=== PATIENT | male | born 1940 | race Caucasian/White ===

== ENCOUNTER 2017-08-31 08:55 | Inpatient (IN) | payer MEDICARE ==
[~2017-08-31] VITALS: Ht 180.3 cm; Wt 79.0 kg
[~2017-08-31 08:55] MED LIST: ACIDOPHILUS1 EAC2 PO; AMOCLA500 PO; CARV6.25 PO; Calcitriol0.5 MCG PO; Cinnamon500 MG PO; ERGO400 PO; FISH1000 PO; HYDR1TAB94 PO; LOSA25 PO; LOSA50 PO; MERIBIN5 MG PO; METO100ER PO; NIFE90ER PO; RENAL-VITE TAB0.8 MG PO; SEVEC800 PO; TAMS.4ER PO; TURMERIC500 M2 PO; UBID10 PO; ZINC50 M2 PO; Zithromax250 MG PO
[2017-08-31 09:51] LABS: BASOPHILS ABSOLUTE AUTO 0.11 K/mm3 (0.00-0.23); BASOPHILS PERCENT AUTO 1 % (0-2); EOSINOPHILS ABSOLUTE AUTO 0.14 K/mm3 (0.00-0.68); EOSINOPHILS PERCENT AUTO 1 % (0-6); Hematocrit 37.2 % (37.0-53.0); Hemoglobin 12.5 g/dL (13.5-17.5); IMMATURE GRAN ABSOLUTE AUTO 0.02 K/mm3 (0.00-0.10); IMMATURE GRAN PERCENT AUTO 0 % (0-1); LYMPHOCYTES ABSOLUTE AUTO 1.36 K/mm3 (0.84-5.20); LYMPHOCYTES PERCENT AUTO 14 % (21-46); MONOCYTES ABSOLUTE AUTO 1.47 K/mm3 (0.16-1.47); MONOCYTES PERCENT AUTO 15 % (4-13); Mean Corpuscular HGB 33.1 pg (26.0-34.0); Mean Corpuscular HGB Conc 33.6 g/dL (31.5-36.5); Mean Corpuscular Volume 98 fL (80-100); Mean Platelet Volume 10.8 fL (9.1-12.4); NEUTROPHILS ABSOLUTE AUTO 6.94 K/mm3 (1.96-9.15); NEUTROPHILS PERCENT AUTO 69 % (41-73); Platelet Count 248 K/mm3 (150-400); RDW Coefficient Variation 14.3 % (11.7-14.2); RDW Standard Deviation 51.4 fL (35.1-46.3); Red Blood Cell Count 3.78 M/mm3 (4.30-5.90); White Blood Cell Count 10.04 K/mm3 (4.00-11.30)
[2017-08-31 10:12] LABS: Albumin, Blood 3.6 g/dL (3.4-5.0); Albumin/Globulin Ratio 0.9 (0.8-1.8); Calcium, Blood 9.4 mg/dL (8.5-10.1); Creatinine, Blood 7.51 mg/dL (0.60-1.20); Globulin, Blood 4.1 g/dL (2.2-4.0); Magnesium, Blood 2.2 mg/dL (1.6-2.4); Total Protein, Blood 7.7 g/dL (6.4-8.2)
[2017-08-31 10:18] LABS: Troponin I 0.813 ng/mL (0.000-0.040)
[2017-08-31 17:49] LABS: International Normalized Ratio 1.11; Prothrombin Time Results 11.6 Sec (9.7-11.5)
[2017-09-01 01:38] LABS: BASOPHILS ABSOLUTE AUTO 0.08 K/mm3 (0.00-0.23); BASOPHILS PERCENT AUTO 1 % (0-2); EOSINOPHILS ABSOLUTE AUTO 0.27 K/mm3 (0.00-0.68); EOSINOPHILS PERCENT AUTO 4 % (0-6); Hematocrit 32.4 % (37.0-53.0); Hemoglobin 10.8 g/dL (13.5-17.5); IMMATURE GRAN ABSOLUTE AUTO 0.01 K/mm3 (0.00-0.10); IMMATURE GRAN PERCENT AUTO 0 % (0-1); LYMPHOCYTES ABSOLUTE AUTO 1.84 K/mm3 (0.84-5.20); LYMPHOCYTES PERCENT AUTO 24 % (21-46); MONOCYTES ABSOLUTE AUTO 1.09 K/mm3 (0.16-1.47); MONOCYTES PERCENT AUTO 14 % (4-13); Mean Corpuscular HGB 32.5 pg (26.0-34.0); Mean Corpuscular HGB Conc 33.3 g/dL (31.5-36.5); Mean Corpuscular Volume 98 fL (80-100); NEUTROPHILS ABSOLUTE AUTO 4.45 K/mm3 (1.96-9.15); NEUTROPHILS PERCENT AUTO 58 % (41-73); Platelet Count 207 K/mm3 (150-400); RDW Coefficient Variation 14.2 % (11.7-14.2); RDW Standard Deviation 50.5 fL (35.1-46.3); Red Blood Cell Count 3.32 M/mm3 (4.30-5.90); White Blood Cell Count 7.74 K/mm3 (4.00-11.30)
[2017-09-01 01:55] LABS: Albumin/Globulin Ratio 0.8 (0.8-1.8); Bilirubin, Total 0.9 mg/dL (0.1-1.0); Bun/Creatinine Ratio 5.5 (12.0-20.0); Calcium, Blood 8.7 mg/dL (8.5-10.1); Creatinine, Blood 5.46 mg/dL (0.60-1.20); Globulin, Blood 3.6 g/dL (2.2-4.0); Magnesium, Blood 2.1 mg/dL (1.6-2.4); Phosphorus, Blood 4.2 mg/dL (2.5-4.9); Potassium, Blood 3.8 mmol/L (3.5-5.5); Total Protein, Blood 6.6 g/dL (6.4-8.2)
[2017-09-02] MEDS ORDERED: Aspir-Trin325 MG PO (11:08)
[2017-09-02] MEDS ORDERED: FISH OIL 1,0001 EAC1 PO (11:09)
[2017-09-02] MEDS ORDERED: ATOR40TA PO (11:09)
[2017-09-02] MEDS ORDERED: Plavix75 MG PO (11:09)
[2017-09-02] MEDS ORDERED: LOSA25 PO (11:10)
[2017-09-02] MEDS ORDERED: CARV3.125 PO (11:12)
== END 2017-09-02 13:10 | disposition home or self-care (01) | DRG 246 ==
LOC: ER 08:55 → PCU 11:08 → ICUW 11:08 → PCU 12:11 → ICUW 09-01 09:06
PROVIDERS: Emergency Medicine; Hospitalist; Internal Medicine Cardiovascular Disease
PROC: 5A1D70Z Performance of Urinary Filtration, Intermittent, Less than 6 Hours Per Day (ICD-10-PCS; 2017-08-31)
PROC: 4A023N7 Measurement of Cardiac Sampling and Pressure, Left Heart, Percutaneous Approach (ICD-10-PCS; principal; 2017-09-01)
PROC: 027034Z Dilation of Coronary Artery, One Artery with Drug-eluting Intraluminal Device, Percutaneous Approach (ICD-10-PCS; 2017-09-01)
PROC: B210YZZ Fluoroscopy of Single Coronary Artery using Other Contrast (ICD-10-PCS; 2017-09-01)
DX: I21.9 Acute myocardial infarction, unspecified (principal); N18.6 End stage renal disease; I13.2 Hypertensive heart and chronic kidney disease with heart failure and with stage 5 chronic kidney disease, or end stage renal disease; I27.20 Pulmonary hypertension, unspecified; I49.5 Sick sinus syndrome; I48.0 Paroxysmal atrial fibrillation; I50.22 Chronic systolic (congestive) heart failure; R33.8 Other retention of urine; I48.91 Unspecified atrial fibrillation; E78.5 Hyperlipidemia, unspecified; Z79.01 Long term (current) use of anticoagulants; Z99.2 Dependence on renal dialysis; Z95.0 Presence of cardiac pacemaker
CPT/HCPCS: 36415; 71020; 80053; 83735; 84100; 84484; 85025; 85347; 85610; 85730; 86850; 86900; 86901; 92978; 93005; 93010; 93458; 96365; 96376; 99152; 99153; 99285; C1725; C1753; C1769; C1874; C1894; C9600; J1644; J2250; J3010; J7030; J7060; Q9967

== ENCOUNTER 2018-03-01 08:03 | Emergency (ER) | payer MEDICARE ==
[~2018-03-01] VITALS: Ht 180.3 cm; Wt 81.7 kg
[~2018-03-01 08:03] MED LIST changes: +ATOR40TA PO; +Aspir-Trin325 MG PO; +CARV3.125 PO; +FISH OIL 1,0001 EAC1 PO; +Plavix75 MG PO
[2018-03-01] MEDS ORDERED: WARF6 PO (08:20)
[2018-03-01] MEDS ORDERED: METO50 PO (08:21)
[2018-03-01 09:04] LABS: BASOPHILS ABSOLUTE AUTO 0.03 K/mm3 (0.00-0.23); BASOPHILS PERCENT AUTO 0 % (0-2); EOSINOPHILS ABSOLUTE AUTO 0.01 K/mm3 (0.00-0.68); EOSINOPHILS PERCENT AUTO 0 % (0-6); Hematocrit 36.1 % (37.0-53.0); Hemoglobin 11.9 g/dL (13.5-17.5); IMMATURE GRAN ABSOLUTE AUTO 0.04 K/mm3 (0.00-0.10); IMMATURE GRAN PERCENT AUTO 0 % (0-1); LYMPHOCYTES PERCENT AUTO 3 % (21-46); MONOCYTES ABSOLUTE AUTO 0.92 K/mm3 (0.16-1.47); MONOCYTES PERCENT AUTO 8 % (4-13); Mean Corpuscular HGB 32.2 pg (26.0-34.0); Mean Corpuscular Volume 98 fL (80-100); Mean Platelet Volume 10.7 fL (9.1-12.4); NEUTROPHILS ABSOLUTE AUTO 9.71 K/mm3 (1.96-9.15); NEUTROPHILS PERCENT AUTO 88 % (41-73); Platelet Count 220 K/mm3 (150-400); RDW Standard Deviation 50.4 fL (35.1-46.3); Red Blood Cell Count 3.69 M/mm3 (4.30-5.90); White Blood Cell Count 11.01 K/mm3 (4.00-11.30)
[2018-03-01 09:10] LABS: Calcium, Ionized (POC) 1.05 mmol/L (1.10-1.46); Chloride (POC) 96 mmol/L (98-108); Creatinine (POC) 8.3 mg/dL (0.8-1.3); Glucose (ISTAT POC) 130 mg/dL (70-99); Hemoglobin (POC) 11.9 g/dL (13.5-17.5); Sodium (POC) 137 mmol/L (135-148); Total CO2 (POC) 27 mmol/L (21-32)
[2018-03-01 09:16] LABS: International Normalized Ratio 3.04; Prothrombin Time Results 29.4 Sec (9.7-11.5)
[2018-03-01 09:30] LABS: Albumin, Blood 3.7 g/dL (3.4-5.0); Albumin/Globulin Ratio 0.9 (0.8-1.8); Bilirubin, Total 1.4 mg/dL (0.1-1.0); Bun/Creatinine Ratio 5.9 (12.0-20.0); Creatinine, Blood 7.95 mg/dL (0.60-1.20); Globulin, Blood 4.2 g/dL (2.2-4.0); Potassium, Blood 4.1 mmol/L (3.5-5.5); Total Protein, Blood 7.9 g/dL (6.4-8.2); Troponin I 0.02 ng/mL (0.000-0.040)
== END 2018-03-01 10:02 | disposition home or self-care (01) ==
LOC: ER 08:03
PROVIDERS: Emergency Medicine
DX: E87.70 Fluid overload, unspecified (principal); Z88.8 Allergy status to other drugs, medicaments and biological substances; Z79.899 Other long term (current) drug therapy; Z79.82 Long term (current) use of aspirin; I10 Essential (primary) hypertension; Z87.891 Personal history of nicotine dependence
CPT/HCPCS: 71046; 80047; 80053; 83880; 84484; 85014; 85025; 85610; 93005; 93010; 99284

== ENCOUNTER 2018-09-25 06:50 | Day surgery (SDC) | payer MEDICARE ==
[~2018-09-25] VITALS: Ht 180.3 cm; Wt 75.0 kg
[~2018-09-25 06:50] MED LIST changes: +METO50 PO; +WARF6 PO
--- NOTE | 2018-09-25 08:19 | NUR ---
DR LING AT BEDSIDE FOR PROCEDURE. PT TOLERATING PROCEDURE WITH NO DISCOMFORT POST LIDOCAINE TO PERMA CATH AREA. REMAINS AT BEDSIDE FOR PROCEDURE.
--- NOTE | 2018-09-25 08:56 | NUR ---
WHEN PT WAS GETTING DRESSED FOR DISCHARGE, LARGE HEMATOMA DEVELOPED ON RIGHT UPPER CHEST UNDER INCISION SITES. PT ASSISTED BACK INTO BED. MANUAL PRESSURE TO SITE.
--- NOTE | 2018-09-25 09:25 | NUR ---
WEIGHT HAS BEEN APPLIED TO RIGHT UPPER CHEST, DUE TO CONTINUED SWELLING AND IMMEDIATE RETURN OF HEMATOMA WITHOUT WEIGHT TO SITE. SITE CURRENTLY SOFT, NO SWELLING OR BLEEDING. BRUISING NOTED AROUND INCISION SITES.
--- NOTE | 2018-09-25 10:10 | NUR ---
UPON TAKING WEIGHT OFF OF RIGHT UPPER CHEST, HEMATOMA RETURNS TO INCISION SITE. IMMEDIATE PRESSURE HELD TO SITE. DR LING NOTIFIED OF ONGOING HEMATOMA.
--- NOTE | 2018-09-25 11:55 | NUR ---
PT OUT TO CAR VIA WHEELCHAIR. GOING TO DIALYSIS IMMEDICATELY AFTER D/C. PRESSURE DRESSING IN PLACE ON RIGHT UPPER CHEST. NO SIGNS OF BLEEDING/HEMATOMA AT TIME OF DISCHARGE. DR LING ASSESSED SITE WELL PRIOR TO PT D/C.
== END 2018-09-25 11:50 | disposition home or self-care (01) ==
LOC: MHTC NI 06:50 → MHTC 06:50 → MHTC NI 11:50 → MHTC 11:50
DX: N18.6 End stage renal disease (principal); Z99.2 Dependence on renal dialysis
CPT/HCPCS: 36590

== ENCOUNTER 2018-10-04 06:44 | Day surgery (SDC) | payer MEDICARE ==
[~2018-10-04] VITALS: Ht 180.3 cm; Wt 75.0 kg
--- NOTE | 2018-10-04 09:48 | NUR ---
DR. LING AT BEDSIDE SPEAKING WITH PT AND HIS ABOUT RESULTS OF PROCEDURE. QUESTIONS ANSWERED. PHONE CALL PLACED TO [facility] BY THIS NURSE TO ENSURE THAT PT WILL GET DIALYSIS COMPLETE TODAY PER DR. LING.
--- NOTE | 2018-10-04 10:34 | NUR ---
PT VERBALIZED UNDERSTANDING OF D/C INSTRUCTIONS. PAPERWORK PLACED INTO [facility] FOLDER AND PROVIDED TO PT. TWO SUTURES REMOVED FROM RIGHT ARM FISTULA PRIOR TO D/C. MINIMAL OOZING NOTED. NON ADHESIVE PAD, 4X4'S, AND COBAN USED TO COVER FISTULA AT DISPO. PT BEING DISCHARGED BEFORE 2 HOUR ORDERS DUE TO NEEDING TO HAVE DIAYLISIS DONE TODAY, DR. LING AWARE AND IS OKAY WITH PT LEAVING NOW. IV REMOVED FROM LEFT WRIST, CATH INTACT, PRESSURE DRESSING APPLIED. PT GETS DRESSED WITH NO NEEDED ASSISTANCE, HIS IS HERE TO DRIVE HIM. TAKEN OUT TO PRIVATE VEHICLE VIA W/C WITH NADN AT TIME OF DISPO. VSS.
== END 2018-10-04 10:40 | disposition home or self-care (01) ==
LOC: MHTC 06:44 → ORSCMMR 06:45 → MHTC 07:00
DX: N18.6 End stage renal disease (principal); Z99.2 Dependence on renal dialysis; Z88.8 Allergy status to other drugs, medicaments and biological substances
CPT/HCPCS: 36902; 36905; 36907; 76937; 99152; 99153; C1725; C1757; C1769; C1894; C2623; J1644; J2250; J3010; J7030; J7040; Q9967

== ENCOUNTER 2018-11-01 14:43 | Emergency (ER) | payer MEDICARE ==
[~2018-11-01] VITALS: Ht 180.3 cm; Wt 77.1 kg
== END 2018-11-01 16:05 | disposition home or self-care (01) ==
LOC: ER 14:43
DX: S46.112A Strain of muscle, fascia and tendon of long head of biceps, left arm, initial encounter (principal); I10 Essential (primary) hypertension; Z88.8 Allergy status to other drugs, medicaments and biological substances; Z79.01 Long term (current) use of anticoagulants; Z79.899 Other long term (current) drug therapy; Z79.02 Long term (current) use of antithrombotics/antiplatelets; Z87.891 Personal history of nicotine dependence; Z99.2 Dependence on renal dialysis
CPT/HCPCS: 93971; 99283

== ENCOUNTER → 2018-11-01 | Outpatient (CLI) | payer MEDICARE ==
[2018-11-01 13:28] LABS: BASOPHILS ABSOLUTE AUTO 0.05 K/mm3 (0.00-0.23); BASOPHILS PERCENT AUTO 1 % (0-2); EOSINOPHILS ABSOLUTE AUTO 0.04 K/mm3 (0.00-0.68); EOSINOPHILS PERCENT AUTO 1 % (0-6); IMMATURE GRAN ABSOLUTE AUTO 0.04 K/mm3 (0.00-0.10); IMMATURE GRAN PERCENT AUTO 1 % (0-1); LYMPHOCYTES ABSOLUTE AUTO 0.83 K/mm3 (0.84-5.20); LYMPHOCYTES PERCENT AUTO 12 % (21-46); MONOCYTES ABSOLUTE AUTO 0.79 K/mm3 (0.16-1.47); MONOCYTES PERCENT AUTO 12 % (4-13); Mean Corpuscular HGB 30.9 pg (26.0-34.0); Mean Corpuscular HGB Conc 33.3 g/dL (31.5-36.5); Mean Corpuscular Volume 93 fL (80-100); Mean Platelet Volume 10.1 fL (9.1-12.4); NEUTROPHILS ABSOLUTE AUTO 5.12 K/mm3 (1.96-9.15); NEUTROPHILS PERCENT AUTO 75 % (41-73); Platelet Count 190 K/mm3 (150-400); RDW Coefficient Variation 18.7 % (11.7-14.2); RDW Standard Deviation 62.8 fL (35.1-46.3); Red Blood Cell Count 3.88 M/mm3 (4.30-5.90); White Blood Cell Count 6.87 K/mm3 (4.00-11.30)
[2018-11-01 13:31] LABS: Albumin, Blood 2.9 g/dL (3.4-5.0); Albumin/Globulin Ratio 0.8 (0.8-1.8); Bilirubin, Direct 0.7 mg/dL (0.0-0.3); Bilirubin, Indirect 1.3 mg/dL (0.1-0.7); Globulin, Blood 3.7 g/dL (2.2-4.0); Total Protein, Blood 6.6 g/dL (6.4-8.2)
== END ==
LOC: LAB SHORT 13:07 → LAB 13:07
PROVIDERS: Internal Medicine
DX: L03.114 Cellulitis of left upper limb (principal); M79.81 Nontraumatic hematoma of soft tissue; D68.318 Other hemorrhagic disorder due to intrinsic circulating anticoagulants, antibodies, or inhibitors
CPT/HCPCS: 80076; 85025; 85730

== ENCOUNTER 2018-12-17 12:56 | Observation (INO) | payer MEDICARE ==
[~2018-12-17] VITALS: Ht 180.3 cm; Wt 77.1 kg
[~2018-12-17 12:56] MED LIST changes: +METO25ER PO; -METO50 PO; +WARF5 PO; -WARF6 PO
[2018-12-17] MEDS ORDERED: Meribin5 MG PO (13:15)
[2018-12-17] MEDS ORDERED: TURMERIC500 M2 PO (13:15)
[2018-12-17 13:53] LABS: BASOPHILS ABSOLUTE AUTO 0.06 K/mm3 (0.00-0.23); BASOPHILS PERCENT AUTO 1 % (0-2); EOSINOPHILS ABSOLUTE AUTO 0.15 K/mm3 (0.00-0.68); EOSINOPHILS PERCENT AUTO 2 % (0-6); Hematocrit 37.3 % (37.0-53.0); Hemoglobin 11.8 g/dL (13.5-17.5); IMMATURE GRAN ABSOLUTE AUTO 0.04 K/mm3 (0.00-0.10); IMMATURE GRAN PERCENT AUTO 1 % (0-1); LYMPHOCYTES ABSOLUTE AUTO 0.72 K/mm3 (0.84-5.20); LYMPHOCYTES PERCENT AUTO 9 % (21-46); MONOCYTES ABSOLUTE AUTO 1.06 K/mm3 (0.16-1.47); MONOCYTES PERCENT AUTO 13 % (4-13); Mean Corpuscular HGB 32.4 pg (26.0-34.0); Mean Corpuscular HGB Conc 31.6 g/dL (31.5-36.5); Mean Corpuscular Volume 103 fL (80-100); Mean Platelet Volume 11.1 fL (9.1-12.4); NEUTROPHILS ABSOLUTE AUTO 6.23 K/mm3 (1.96-9.15); NEUTROPHILS PERCENT AUTO 76 % (41-73); Platelet Count 205 K/mm3 (150-400); RDW Coefficient Variation 16.7 % (11.7-14.2); RDW Standard Deviation 63.6 fL (35.1-46.3); Red Blood Cell Count 3.64 M/mm3 (4.30-5.90); White Blood Cell Count 8.26 K/mm3 (4.00-11.30)
[2018-12-17 14:16] LABS: Albumin, Blood 2.9 g/dL (3.4-5.0); Albumin/Globulin Ratio 0.7 (0.8-1.8); Bilirubin, Total 1.1 mg/dL (0.1-1.0); Bun/Creatinine Ratio 9.9 (12.0-20.0); Calcium, Blood 9.4 mg/dL (8.5-10.1); Creatinine, Blood 5.37 mg/dL (0.60-1.20); Globulin, Blood 4.2 g/dL (2.2-4.0); Potassium, Blood 4.3 mmol/L (3.5-5.5); Total Protein, Blood 7.1 g/dL (6.4-8.2)
[2018-12-17 15:41] LABS: Prothrombin Time Results 40.3 Sec (9.7-11.5)
[2018-12-17] MEDS ORDERED: WARF2.5 PO (16:12)
[2018-12-17 16:14] LABS: International Normalized Ratio 4.35
--- NOTE | 2018-12-17 17:56 | NUR ---
PT JUST ARRIVED TO FLOOR AND IS AOX4 AND COOPERATIVE OF CARE. PT IN BED AT THIS TIME WAITING FOR DINNER. NO DISTRESS NOTED.
--- NOTE | 2018-12-18 03:58 | NUR ---
SHIFT SUMMARY A/O, ABLE TO MAKE NEEDS KNOWN. HARD OF HEARING. COOPERATIVE WITH CARE. NO C/O PAIN/DISCOMFORT. DIALYZED IN ROOM THIS SHIFT; YEILDING 2L OFF. NO ACUTE CHANGES TO NOTE. VSS/AFEBRILE. NO FURTHER C/O SOB; HOWEVER, LUNGS REMAIN DIMINISHED THROUGHOUT. BED IN LOWEST POSITION. CALL LIGHT WITHIN REACH. WCTM. REPORT TO ONCOMING RN.
[2018-12-18 05:35] LABS: Hemoglobin 11.9 g/dL (13.5-17.5); Mean Corpuscular HGB 31.6 pg (26.0-34.0); Mean Corpuscular HGB Conc 31.3 g/dL (31.5-36.5); Mean Corpuscular Volume 101 fL (80-100); Mean Platelet Volume 10.9 fL (9.1-12.4); Platelet Count 217 K/mm3 (150-400); RDW Coefficient Variation 16.8 % (11.7-14.2); RDW Standard Deviation 62.6 fL (35.1-46.3); Red Blood Cell Count 3.77 M/mm3 (4.30-5.90)
[2018-12-18 05:58] LABS: Bun/Creatinine Ratio 8.6 (12.0-20.0); Calcium, Blood 9.2 mg/dL (8.5-10.1); Creatinine, Blood 4.75 mg/dL (0.60-1.20); Potassium, Blood 4.2 mmol/L (3.5-5.5)
[2018-12-18 06:01] LABS: International Normalized Ratio 4.67; Thyroid Stimulating Hormone 1.09 uIU/mL (0.360-4.800)
--- NOTE | 2018-12-18 18:00 | NUR ---
PT AOX4 AND COOPERATIVE OF ALL CARE. PT IS A ONE PERSON STAND BY WITH WALKER. PT CALLS APPROPRIATELY. DIALYSIS STARTED AT 1000 TODAY SO PT WAS OUT OF THE ROOM FOR SOMETIME. PT REPORTED THIS AM HE WAS SOB AND O2 WAS APPLIED. PT JEROME HAD AN EPISODE OF FEELIG SOB AFTER RETURNING FROM DIALYSIS O2 WAS 89%. WITH O2 1L HE IS 94%. WILL CONTINUE TO MONITOR. DENIES ANY PAIN.
--- NOTE | 2018-12-19 04:46 | NUR ---
SHIFT SUMMARY A/O NO C/O PAIN. ANN BO TO BA. HE WAS ABLE TO SLEEP T/O NOC. NO ACUTE CHANGES TO REPORT. CALL LIGHT IN REACH.
[2018-12-19 05:51] LABS: International Normalized Ratio 2.51; Prothrombin Time Results 24.5 Sec (9.7-11.5)
[2018-12-19 05:56] LABS: Alanine Aminotransfer (ALT/SGP 71 U/L (12-78); Albumin, Blood 3.1 g/dL (3.4-5.0); Albumin/Globulin Ratio 0.8 (0.8-1.8); Alk Phos 94 U/L (50-136); Anion Gap 9 mmol/L (6-16); Aspartate Aminotrans (AST/SGOT 38 U/L (12-37); Bilirubin, Direct 0.7 mg/dL (0.0-0.3); Bilirubin, Indirect 0.7 mg/dL (0.1-0.7); Bilirubin, Total 1.4 mg/dL (0.1-1.0); Blood Urea Nitrogen 38 mg/dL (8-24); Bun/Creatinine Ratio 8.2 (12.0-20.0); CO2, Blood 33 mmol/L (21-32); Calcium, Blood 9.6 mg/dL (8.5-10.1); Chloride, Blood 93 mmol/L (98-108); Creatinine, Blood 4.63 mg/dL (0.60-1.20); Glomerular Filtration Rate 13 (60-); Glucose, Blood 106 mg/dL (70-99); Phosphorus, Blood 4.3 mg/dL (2.5-4.9); Potassium, Blood 4.2 mmol/L (3.5-5.5); Sodium, Blood 135 mmol/L (136-145); Total Protein, Blood 7.1 g/dL (6.4-8.2)
--- NOTE | 2018-12-19 15:14 | NUR ---
PT DISCHARGED PT DISCAHRGED IN STABLE CONDITION WITH VSS. PT & EDUCATED ON DC INSTRUCTIONS & FURTURE APPOINTMENTS. PT & DENIES ANY FURTHER QUESTIONS. PT WHEELED OUT BY ESCORT & DRIVEN HOME BY .
== END 2018-12-19 15:14 | disposition home or self-care (01) ==
LOC: ER 12:56 → MEDS 12:57
PROVIDERS: Emergency Medicine; Physician Assistant; ADMIT Internal Medicine
DX: E87.70 Fluid overload, unspecified (principal); J81.1 Chronic pulmonary edema; J90 Pleural effusion, not elsewhere classified; R09.02 Hypoxemia; I13.2 Hypertensive heart and chronic kidney disease with heart failure and with stage 5 chronic kidney disease, or end stage renal disease; I50.22 Chronic systolic (congestive) heart failure; N18.6 End stage renal disease; I27.20 Pulmonary hypertension, unspecified; R79.1 Abnormal coagulation profile; I48.0 Paroxysmal atrial fibrillation; I25.10 Atherosclerotic heart disease of native coronary artery without angina pectoris; N40.0 Benign prostatic hyperplasia without lower urinary tract symptoms; I49.5 Sick sinus syndrome; Z88.8 Allergy status to other drugs, medicaments and biological substances; Z99.2 Dependence on renal dialysis; Z95.5 Presence of coronary angioplasty implant and graft; Z79.899 Other long term (current) drug therapy; Z87.891 Personal history of nicotine dependence
CPT/HCPCS: 36415; 71046; 80048; 80053; 82248; 84100; 84443; 85025; 85027; 85610; 85730; 93005; 93010; 93306; 99285-25; G0257; G0378

== ENCOUNTER → 2018-12-20 | Outpatient (CLI) | payer MEDICARE ==
[~2018-12-20] MED LIST changes: +CLOP75 PO; +Meribin5 MG; +Meribin5 MG PO; +WARF2.5 PO
[2018-12-20 15:24] LABS: BASOPHILS ABSOLUTE AUTO 0.04 K/mm3 (0.00-0.23); BASOPHILS PERCENT AUTO 1 % (0-2); EOSINOPHILS ABSOLUTE AUTO 0.23 K/mm3 (0.00-0.68); EOSINOPHILS PERCENT AUTO 3 % (0-6); Hematocrit 34.3 % (37.0-53.0); Hemoglobin 11.6 g/dL (13.5-17.5); IMMATURE GRAN ABSOLUTE AUTO 0.03 K/mm3 (0.00-0.10); IMMATURE GRAN PERCENT AUTO 0 % (0-1); LYMPHOCYTES ABSOLUTE AUTO 0.62 K/mm3 (0.84-5.20); LYMPHOCYTES PERCENT AUTO 8 % (21-46); MONOCYTES ABSOLUTE AUTO 0.91 K/mm3 (0.16-1.47); MONOCYTES PERCENT AUTO 12 % (4-13); Mean Corpuscular HGB 32.6 pg (26.0-34.0); Mean Corpuscular HGB Conc 33.8 g/dL (31.5-36.5); Mean Corpuscular Volume 96 fL (80-100); Mean Platelet Volume 11.1 fL (9.1-12.4); NEUTROPHILS ABSOLUTE AUTO 6.02 K/mm3 (1.96-9.15); NEUTROPHILS PERCENT AUTO 77 % (41-73); Platelet Count 223 K/mm3 (150-400); RDW Coefficient Variation 16.2 % (11.7-14.2); Red Blood Cell Count 3.56 M/mm3 (4.30-5.90); White Blood Cell Count 7.85 K/mm3 (4.00-11.30)
[2018-12-20 15:42] LABS: International Normalized Ratio 1.63; Prothrombin Time Results 16.5 Sec (9.7-11.5)
== END | disposition home or self-care (01) ==
LOC: LAB SHORT 14:55 → LAB 14:55
PROVIDERS: Internal Medicine
DX: J90 Pleural effusion, not elsewhere classified (principal); I48.91 Unspecified atrial fibrillation
CPT/HCPCS: 85025; 85610; 85730

== ENCOUNTER 2018-12-21 14:31 | Day surgery (SDC) | payer MEDICARE ==
[~2018-12-21 14:31] MED LIST changes: -CLOP75 PO; -Meribin5 MG
== END 2018-12-21 23:32 | disposition home or self-care (01) ==
LOC: US 14:31
DX: J90 Pleural effusion, not elsewhere classified (principal); E87.70 Fluid overload, unspecified; J81.1 Chronic pulmonary edema; I51.7 Cardiomegaly; N18.6 End stage renal disease; I50.22 Chronic systolic (congestive) heart failure; I48.0 Paroxysmal atrial fibrillation; I25.10 Atherosclerotic heart disease of native coronary artery without angina pectoris; Z99.2 Dependence on renal dialysis; Z88.8 Allergy status to other drugs, medicaments and biological substances; Z79.899 Other long term (current) drug therapy; Z79.01 Long term (current) use of anticoagulants
CPT/HCPCS: 32555; 71045

== ENCOUNTER 2018-12-26 07:45 | Day surgery (SDC) | payer MEDICARE ==
[2018-12-21 17:27] LABS: Lactate Dehydrogenase, Body Fl 75 U/L; Protein, Body Fluid 2.6 g/dL
[~2018-12-26] VITALS: Ht 177.8 cm; Wt 78.0 kg
[2018-12-26] MEDS ORDERED: CLOP75 PO (08:18)
[2018-12-26] MEDS ORDERED: Meribin5 MG (08:19)
--- NOTE | 2018-12-26 11:04 | NUR ---
PT ARRIVED BACK TO RECOVERY ROOM ON BED. RIGHT AND LEFT GROIN SITES SOFT NON-TENDER WITH NO HEMATOMA AND NO PULSATILE BLEEDING. PT TALKING WITH AND DRINKING APPLE JUICE. CALL LIGHT IN REACH. BILAT GROIN SITES HAVE INTACT DRESSING.
--- NOTE | 2018-12-26 11:34 | NUR ---
BILAT GROIN SITES SOFT WITH NO HEMATOMA AND NO PULSATILE BLEEDING AND INTACT DRESSINGS. SLIGHT TRACK OOZING NOTED BILAT GROIN SITES.
--- NOTE | 2018-12-26 12:04 | NUR ---
[facility] LING IN ROOM TO SEE PT AND PT'S .
--- NOTE | 2018-12-26 12:14 | NUR ---
BILAT DP PULSES DOPPLER.
--- NOTE | 2018-12-26 13:46 | NUR ---
+ HEMATOMA L GROIN. APPLIED MANUAL PRESSURE FOR 30MIN. NO SWELLING OR BLEEDING POST HOLDING PRESSURE.
--- NOTE | 2018-12-26 14:19 | NUR ---
BILAT GROIN SITES SOFT NON-TENDER WITH NO HEMATOMA AND INTACT DRESSINGS.
--- NOTE | 2018-12-26 14:53 | NUR ---
DR LING IN ROOM TO SEE PT AND EVALUATE GROIN SITES. SEE NEW ORDERS.
--- NOTE | 2018-12-26 15:20 | NUR ---
HOB UP AND DISCHARGE INSTRUCTIONS REVIEWED ALL QUESTIONS ANSWERED. PT SAT UP TO SIDE OF BED; NO CHANGES TO BILAT GROIN SITES - SOFT NON-TENDER WITH NO HEMATOMA AND NO PULSATILE BLEEDING. 20 G IV DISCONTINUED FROM LEFT WRIST WITH INTACT CANNULA. PT ABLE TO GET DRESSED AND ESCORTED OUT VIA WHEELCHAIR ESCORT.
== END 2018-12-26 15:25 | disposition home or self-care (01) ==
LOC: MHTC 07:45
PROVIDERS: Internal Medicine
DX: I73.9 Peripheral vascular disease, unspecified (principal); I10 Essential (primary) hypertension
CPT/HCPCS: 83615; 84157; 87070; 87205; 99152; 99153; C1725; C1760; C1769; C1887; C1894; J1644; J2250; J3010; J7030; Q9967

== ENCOUNTER 2019-03-20 14:47 | Day surgery (SDC) | payer MEDICARE ==
[~2019-03-20 14:47] MED LIST changes: +CLOP75 PO; +Meribin5 MG
[2019-03-20 17:31] LABS: Body Fluid WBC Count 50 /mm3 (0-999)
[2019-03-20 18:09] LABS: RBC Count, Body Fluid 100 /mm3 (0-0)
[2019-03-20 18:20] LABS: Appearance, Body Fluid Clear (Clear); Color, Body Fluid Yellow (None-Yellow); Total Cell Count, Body Fluid 100
== END 2019-03-20 22:53 | disposition home or self-care (01) ==
LOC: US 14:47
PROVIDERS: Internal Medicine Pulmonary Disease
DX: J90 Pleural effusion, not elsewhere classified (principal); I10 Essential (primary) hypertension; Z87.891 Personal history of nicotine dependence; Z79.899 Other long term (current) drug therapy; Z79.01 Long term (current) use of anticoagulants; Z88.8 Allergy status to other drugs, medicaments and biological substances; Z88.1 Allergy status to other antibiotic agents
CPT/HCPCS: 32555; 71045; 87070; 87205; 88108; 89051

== ENCOUNTER 2019-10-03 11:46 | Emergency (ER) | payer MEDICARE ==
[~2019-10-03] VITALS: Ht 180.3 cm; Wt 73.0 kg
[~2019-10-03 11:46] MED LIST changes: +WARF7.5 PO
[2019-10-03 13:07] LABS: BASOPHILS ABSOLUTE AUTO 0.05 K/mm3 (0.00-0.23); BASOPHILS PERCENT AUTO 1 % (0-2); EOSINOPHILS ABSOLUTE AUTO 0.05 K/mm3 (0.00-0.68); EOSINOPHILS PERCENT AUTO 1 % (0-6); Hematocrit 35.2 % (37.0-53.0); Hemoglobin 11.2 g/dL (13.5-17.5); IMMATURE GRAN ABSOLUTE AUTO 0.04 K/mm3 (0.00-0.10); IMMATURE GRAN PERCENT AUTO 1 % (0-1); LYMPHOCYTES ABSOLUTE AUTO 1.01 K/mm3 (0.84-5.20); LYMPHOCYTES PERCENT AUTO 13 % (21-46); MONOCYTES ABSOLUTE AUTO 1.37 K/mm3 (0.16-1.47); MONOCYTES PERCENT AUTO 18 % (4-13); Mean Corpuscular HGB 31.3 pg (26.0-34.0); Mean Corpuscular HGB Conc 31.8 g/dL (31.5-36.5); Mean Corpuscular Volume 98 fL (80-100); Mean Platelet Volume 10.2 fL (9.1-12.4); NEUTROPHILS ABSOLUTE AUTO 5.28 K/mm3 (1.96-9.15); NEUTROPHILS PERCENT AUTO 68 % (41-73); Platelet Count 215 K/mm3 (150-400); RDW Coefficient Variation 15.5 % (11.7-14.2); RDW Standard Deviation 54.5 fL (35.1-46.3); Red Blood Cell Count 3.58 M/mm3 (4.30-5.90)
[2019-10-03 13:27] LABS: Albumin, Blood 3.4 g/dL (3.4-5.0); Albumin/Globulin Ratio 0.9 (0.8-1.8); Bun/Creatinine Ratio 10.2 (12.0-20.0); Creatinine, Blood 3.44 mg/dL (0.60-1.20); Globulin, Blood 3.6 g/dL (2.2-4.0); Potassium, Blood 3.2 mmol/L (3.5-5.5)
== END 2019-10-03 16:25 | disposition home or self-care (01) ==
LOC: ER 11:46
PROVIDERS: Physician Assistant
DX: I12.9 Hypertensive chronic kidney disease with stage 1 through stage 4 chronic kidney disease, or unspecified chronic kidney disease (principal); N18.9 Chronic kidney disease, unspecified; R47.81 Slurred speech; R06.09 Other forms of dyspnea; Z88.8 Allergy status to other drugs, medicaments and biological substances; Z79.01 Long term (current) use of anticoagulants; Z79.899 Other long term (current) drug therapy
CPT/HCPCS: 36415; 70450; 71046; 80053; 85025; 93005; 93010; 99285-25

== ENCOUNTER 2020-07-14 06:04 | Day surgery (SDC) | payer MEDICARE ==
[~2020-07-14] VITALS: Ht 180.3 cm; Wt 77.0 kg
[~2020-07-14 06:04] MED LIST changes: +ATROVENT HFA12.9 GM INH; +MIDO5 PO
--- NOTE | 2020-07-14 08:53 | NUR ---
PT RETURNED TO RECOVERY ROOM IN BED. RIGHT FISTULAGRAM SITE SOFT NON-TENDER WITH NO HEMATOMA AND NO BLEEDING WITH CLOTH DOT IN PLACE. PT DENIES CP. CALL LIGHT IN REACH. BRUIE PALPATED RIGHT FISTULA SITE.
--- NOTE | 2020-07-14 09:03 | NUR ---
DR LING IN ROOM TO SEE PT AND HIS .
--- NOTE | 2020-07-14 10:48 | NUR ---
SINGLE STICH REMOVED FROM RIGHT ARM FISTULAGRAM SITE; POLYMEM PLACED OVER SITE WITH NO HEMATOMA AND ONLY VERY SLIGHT OOZING. DISCHARGE INSTRUCTIONS REVIEWED AND ALL QUESTIONS ANSWERED.
--- NOTE | 2020-07-14 11:15 | NUR ---
20 G IV DISCONTINUED FROM LEFT AC WITH INTACT CANNULA. NO OOZING NOTED ON POLYMEM OVER RIGHT FISTULAGRAM SITE. PT ESCORTED OUT VIA WHEELCHAIR ESCORT.
== END 2020-07-14 11:15 | disposition home or self-care (01) ==
LOC: MHTC 06:04
DX: I12.0 Hypertensive chronic kidney disease with stage 5 chronic kidney disease or end stage renal disease (principal); N18.6 End stage renal disease; E78.5 Hyperlipidemia, unspecified; Z88.8 Allergy status to other drugs, medicaments and biological substances; Z87.891 Personal history of nicotine dependence; Z79.02 Long term (current) use of antithrombotics/antiplatelets; Z79.899 Other long term (current) drug therapy; Z79.01 Long term (current) use of anticoagulants
CPT/HCPCS: 36902; 36907; 75710; 99152; 99153; C1725; C1769; C1887; C1894; C2623; J1644; J2250; J3010; J7030; Q9967

== ENCOUNTER 2020-12-08 15:30 | Day surgery (SDC) | payer MEDICARE | END 2020-12-08 17:05 | disposition home or self-care (01) | LOC: ATC 15:30 | DX: R18.8 Other ascites (principal) | CPT/HCPCS: 49083; 96365; P9041; P9046 ==

== ENCOUNTER 2021-01-27 13:31 | Day surgery (SDC) | payer MEDICARE | END 2021-01-27 16:38 | disposition home or self-care (01) | LOC: ATC 13:31 → US 13:31 → EDSTATUS 14:00 → US 14:00 → ATC 16:38 | DX: R18.8 Other ascites (principal) | CPT/HCPCS: 49083; 96365; P9046 ==

== ENCOUNTER 2021-02-18 04:16 | Day surgery (SDC) | payer MEDICARE ==
[2021-02-18] MEDS ORDERED: VITAMIN D32000 UNI1 (11:02)
[2021-02-18] MEDS ORDERED: RENAL VITAMIN0.8 MG PO (11:02)
== END 2021-02-18 12:05 | disposition home or self-care (01) ==
LOC: ATC 04:16
DX: R94.7 Abnormal results of other endocrine function studies (principal); I13.2 Hypertensive heart and chronic kidney disease with heart failure and with stage 5 chronic kidney disease, or end stage renal disease; I50.22 Chronic systolic (congestive) heart failure; N18.6 End stage renal disease; J44.9 Chronic obstructive pulmonary disease, unspecified; Z99.2 Dependence on renal dialysis; Z88.8 Allergy status to other drugs, medicaments and biological substances; Z79.01 Long term (current) use of anticoagulants; Z87.891 Personal history of nicotine dependence
CPT/HCPCS: 36415; 80400; 82533; 96372; J0834

== ENCOUNTER 2021-03-01 11:31 | Day surgery (SDC) | payer MEDICARE ==
[~2021-03-01 11:31] MED LIST changes: +RENAL VITAMIN0.8 MG PO; +VITAMIN D32000 UNI1
== END 2021-03-01 11:55 | disposition home or self-care (01) ==
LOC: ATC 11:31
DX: R18.8 Other ascites (principal); I25.2 Old myocardial infarction; I13.2 Hypertensive heart and chronic kidney disease with heart failure and with stage 5 chronic kidney disease, or end stage renal disease; I50.22 Chronic systolic (congestive) heart failure; N18.6 End stage renal disease; J98.11 Atelectasis; I49.5 Sick sinus syndrome; Z88.8 Allergy status to other drugs, medicaments and biological substances; Z79.02 Long term (current) use of antithrombotics/antiplatelets; Z79.01 Long term (current) use of anticoagulants; Z87.891 Personal history of nicotine dependence; Z99.2 Dependence on renal dialysis
CPT/HCPCS: 36415; 49083; 85025; 96365; P9041; P9046